=== PATIENT | female | born 1990 | race Caucasian/White ===

== ENCOUNTER 2020-12-07 21:52 | Emergency (ER) | payer OTHER ==
[~2020-12-07] VITALS: Ht 160 cm; Wt 67.1 kg
[2020-12-07 22:10] VITALS: BP 125/73
--- NOTE | 2020-12-07 22:35 | NUR ---
30 yo f bib self with c/c of 10/10 r upper back and r rib pain x1day. pt states it hurts more when she takes a deep breath, chest tightens and sob during pain. o2 sat 100% ra. pt states pain began all of a sudden. nonrad. denies taking medication for pain. pt yells and groans when pain begins. pt states she was told she had fluid in her l lung in january during , was told to follow up, pt did not. pt placed in clinical research monitor. denies fever, cough, chills. covid in january. denies hx and rx nka
[2020-12-07] MEDS ORDERED: KETOROLAC 30 MG/ML VIAL IM ONE (23:25)
[2020-12-07] MEDS ORDERED: LORazepam 1 MG TAB PO ONE (23:25)
--- NOTE | 2020-12-07 23:35 | NUR ---
rad at bedside.
[2020-12-08] MEDS ORDERED: MORPHINE SULFATE 4 MG/ML SYR IM ONE (00:20)
--- NOTE | 2020-12-08 00:23 | NUR ---
pt taken to ct.
--- NOTE | 2020-12-08 00:35 | NUR ---
pt back from ct.
--- NOTE | 2020-12-08 00:39 | NUR ---
lab at bedside.
[2020-12-08 00:55] LABS: BASOPHILS % (AUTO) 0.6 % (0.0-2.0); EOSINOPHILS # (AUTO) 0.3 K/uL (0-0.4); EOSINOPHILS % (AUTO) 3.4 % (0.0-4.0); HEMATOCRIT 35.6 % (36-48); HEMOGLOBIN 11.9 g/dL (12.0-16.0); LYMPHOCYTES # (AUTO) 1.3 K/uL (2.5-16.5); LYMPHOCYTES % (AUTO) 17.6 % (20.5-51.1); MEAN CORPUSCULAR HEMOGLOBIN 31 pg (27-31); MEAN CORPUSCULAR HGB CONC 33 g/dL (33-37); MEAN CORPUSCULAR VOLUME 93.6 fL (80-94); MONOCYTES # (AUTO) 0.5 K/uL (0.8-1.0); MONOCYTES % (AUTO) 6.7 % (1.7-9.3); NEUTROPHILS # (AUTO) 5.5 K/uL (1.8-7.7); NEUTROPHILS % (AUTO) 71.7 % (42.2-75.2); PLATELET COUNT (AUTO) 240 K/uL (140-450); RED CELL DISTRIBUTION WIDTH 14.3 % (11.6-13.7); WHITE BLOOD COUNT (AUTO) 7.6 K/uL (4.8-10.8)
[2020-12-08 01:02] LABS: ALBUMIN 3.8 g/dL (3.4-5.0); ANION GAP 12.4 (8-16); CARBON DIOXIDE 29.3 mmol/L (21-32); CREATININE 0.9 mg/dL (0.6-1.3); POTASSIUM 3.7 mmol/L (3.5-5.1); TOTAL BILIRUBIN 0.2 mg/dL (0.0-1.0)
--- NOTE | 2020-12-08 01:22 | NUR ---
pt is resting. equal rise and fall of chest wall. opens eyes to sound. all needs met at this time. side railsx2, bed locked in lowest position.
--- NOTE | 2020-12-08 01:35 | NUR ---
provided with crackers and apple juice per request.
[2020-12-08] MEDS ORDERED: NAPR-54 PO (02:14)
[2020-12-08] MEDS ORDERED: ACET-8386 PO (02:41)
[2020-12-08 02:45] VITALS: BP 112/63
--- NOTE | 2020-12-08 02:45 | NUR ---
Patient discharged with v/s stable. Written and verbal after care instructions given and explained. Patient alert, oriented and verbalized understanding of instructions. Ambulatory with steady gait. All questions addressed prior to discharge. ID band removed. Patient advised to follow up with PMD. Rx of norco and naprosyn given. Patient educated on indication of medication including possible reaction and side effects. Opportunity to ask questions provided and answered.
== END 2020-12-08 02:45 | disposition home or self-care (01) ==
LOC: MED 21:52
DX: R10.9 Unspecified abdominal pain (principal); M54.9 Dorsalgia, unspecified; R11.0 Nausea; Z79.899 Other long term (current) drug therapy
CPT/HCPCS: 36415; 71045; 74176; 80053; 85025; 96372; 99285; J1885; J2270; Q0092

== ENCOUNTER 2021-01-27 16:47 | Emergency (ER) | payer OTHER ==
[~2021-01-27] VITALS: Ht 160 cm; Wt 65.8 kg
[~2021-01-27 16:47] MED LIST: ACET-8386 PO; NAPR-54 PO
[2021-01-27 17:13] VITALS: BP 105/63
[2021-01-27] MEDS ORDERED: ACETAMINOPHEN EXTRA STRENGTH 500 MG TAB PO ONE (17:25)
--- NOTE | 2021-01-27 20:00 | NUR ---
PT ASSISTED TO BED 06 VIA W/C.
[2021-01-27] MEDS ORDERED: MORPHINE SULFATE 4 MG/ML SYR IVP ONE (20:10)
[2021-01-27] MEDS ORDERED: NACL 0.9% 1,000 ML IV ONE (20:10)
--- NOTE | 2021-01-27 20:10 | NUR ---
CHECKED PT'S TEMP, TEMP WAS 98.5
--- NOTE | 2021-01-27 20:13 | NUR ---
ERMD AT BEDSIDE.
[2021-01-27 20:29] LABS: BASOPHILS % (AUTO) 0.3 % (0.0-2.0); EOSINOPHILS % (AUTO) 0.2 % (0.0-4.0); HEMOGLOBIN 11.9 g/dL (12.0-16.0); LYMPHOCYTES # (AUTO) 0.7 K/uL (2.5-16.5); LYMPHOCYTES % (AUTO) 8.8 % (20.5-51.1); MEAN CORPUSCULAR HEMOGLOBIN 32 pg (27-31); MEAN CORPUSCULAR HGB CONC 34 g/dL (33-37); MEAN CORPUSCULAR VOLUME 93.3 fL (80-94); MONOCYTES # (AUTO) 0.4 K/uL (0.8-1.0); MONOCYTES % (AUTO) 5.8 % (1.7-9.3); NEUTROPHILS # (AUTO) 6.4 K/uL (1.8-7.7); NEUTROPHILS % (AUTO) 84.9 % (42.2-75.2); PLATELET COUNT (AUTO) 292 K/uL (140-450); RED BLOOD CELL COUNT(AUTO) 3.75 MIL/uL (4.20-5.40); RED CELL DISTRIBUTION WIDTH 14.1 % (11.6-13.7); WHITE BLOOD COUNT (AUTO) 7.6 K/uL (4.8-10.8)
[2021-01-27 20:42] LABS: PROTHROMBIN TIME 10.2 secs (10.8-13.4)
[2021-01-27 20:43] LABS: ALBUMIN 3.8 g/dL (3.4-5.0); ANION GAP 13.1 (8-16); CARBON DIOXIDE 28.6 mmol/L (21-32); CREATININE 0.9 mg/dL (0.6-1.3); POTASSIUM 3.7 mmol/L (3.5-5.1); TOTAL BILIRUBIN 0.6 mg/dL (0.0-1.0)
--- NOTE | 2021-01-27 20:57 | NUR ---
AMBULATED PT TO BTHROOM
[2021-01-27] MEDS ORDERED: KETOROLAC 30 MG/ML VIAL IVP ONE (22:40)
[2021-01-27] MEDS ORDERED: cefTRIAXone 2,000 MG in DEXTROSE 5% 100 ML IV ONE (22:40)
[2021-01-27] MEDS ORDERED: MORPHINE SULFATE 2 MG/ML SYR IVP ONE (22:40)
[2021-01-27] MEDS ORDERED: cefTRIAXone 2,000 MG VIAL ONE (22:43)
[2021-01-27] MEDS ORDERED: CEPH-588 PO (23:13)
[2021-01-27 23:15] LABS: APPEARANCE,URINE CLOUDY (CLEAR); BILIRUBIN,URINE NEGATIVE (NEGATIVE); BLOOD, URINE 1+ (NEGATIVE); COLOR,URINE YELLOW (YELLOW); LEUKOCYTE ESTERASE ,URINE 2+ (NEGATIVE); NITRITE, URINE POSITIVE (NEGATIVE); UGLUCOSE NEGATIVE (NEGATIVE)
[2021-01-27 23:22] LABS: RBC,URINE 0-5 /HPF (0-5); WBC,URINE TOO MANY TO COUNT /HPF (0-5)
[2021-01-27] MEDS ORDERED: IBUP-2213 PO (23:23)
--- NOTE | 2021-01-27 23:46 | NUR ---
COMPLETE RAT CULTURIST PERFORMED AT 2328 DOCUMENTED BY YONY KIM [facility].
--- NOTE | 2021-01-28 00:22 | NUR ---
AMBULATED TO RESTROOM.
--- NOTE | 2021-01-28 00:30 | NUR ---
PT GIVEN A SANDWHICH AND JUICE AFTER REQUEST.
[2021-01-28] MEDS ORDERED: KETO30SO21 IJ (01:25)
[2021-01-28 01:30] VITALS: BP 102/54
--- NOTE | 2021-01-28 01:30 | NUR ---
Patient discharged with v/s stable. Written and verbal after care instructions given and explained. Patient alert, oriented and verbalized understanding of instructions. Ambulatory with steady gait. All questions addressed prior to discharge. ID band removed. Patient advised to follow up with PMD. Rx of KEFLEX,IBUPROFEN, AND TORADAL given. Patient educated on indication of medication including possible reaction and side effects. Opportunity to ask questions provided and answered.
== END 2021-01-28 01:30 | disposition home or self-care (01) ==
LOC: MED 16:47
DX: N12 Tubulo-interstitial nephritis, not specified as acute or chronic (principal); R10.9 Unspecified abdominal pain; R30.0 Dysuria; R11.0 Nausea; Z79.899 Other long term (current) drug therapy
CPT/HCPCS: 36415; 76770; 80053; 81001; 81025; 83605; 85025; 85610; 85730; 87040; 87086; 93005; 96361; 96365; 96375; 99284; J0696; J1885; J2270; J7030; Q0092

== ENCOUNTER 2021-02-12 | Emergency (ER) | payer OTHER ==
[~2021-02-12] VITALS: Ht 160 cm; Wt 63.5 kg
[~2021-02-12] MED LIST changes: +CEPH-588 PO; +IBUP-2213 PO; +KETO30SO21 IJ
[2021-02-12 00:04] VITALS: BP 121/64
--- NOTE | 2021-02-12 00:10 | NUR ---
PT AMBULATED TO BED #9
--- NOTE | 2021-02-12 00:13 | NUR ---
PATIENT STATES SHE WAS AMBULATING AT HOME, TRIPPED AND FELL AND HAS INJURY AND SWELLING TO HER NOSE. MIKAYLA DENIES AND FURTHER COMPLAINTS, STATES SHE INITIALLY FELT DIZZY AND SEES STARS
--- NOTE | 2021-02-12 00:36 | NUR ---
Dr. Rincon examining patient.
[2021-02-12] MEDS ORDERED: KETOROLAC 30 MG/ML VIAL IM ONE (00:45)
[2021-02-12] MEDS ORDERED: HYDROcodone/APAP 5/325 MG 1 TAB TAB PO ONE (00:45)
[2021-02-12] MEDS ORDERED: LORazepam 1 MG TAB PO ONE (02:25)
[2021-02-12] MEDS ORDERED: IBUP-2213 PO (03:34)
[2021-02-12] MEDS ORDERED: ACET-8386 PO (03:40)
[2021-02-12 03:46] VITALS: BP 113/77
--- NOTE | 2021-02-12 03:46 | NUR ---
PATIENT CLEARED FOR DISCHARGE AT THIS TIME. ADVSED TO FOLLOW UP WITH PCP AND RETURN IF CONDITION WORSENS. NO FURTHER QUESTIONS FOLLOWING DISCHARGE TEACHIGN.
== END 2021-02-12 03:46 | disposition home or self-care (01) ==
LOC: MED
DX: S16.1XXA Strain of muscle, fascia and tendon at neck level, initial encounter (principal); S09.90XA Unspecified injury of head, initial encounter; J34.89 Other specified disorders of nose and nasal sinuses; M79.644 Pain in right finger(s); W01.0XXA Fall on same level from slipping, tripping and stumbling without subsequent striking against object, initial encounter; Y93.89 Activity, other specified; Y92.89 Other specified places as the place of occurrence of the external cause; Y99.8 Other external cause status
CPT/HCPCS: 70450; 70486; 72125; 73120; 96372; 99285; J1885; Q0092

== ENCOUNTER 2021-07-11 23:02 | Emergency (ER) | payer OTHER ==
[~2021-07-11] VITALS: Ht 160 cm; Wt 72.6 kg
[2021-07-11 23:04] VITALS: BP 110/62
--- NOTE | 2021-07-11 23:13 | NUR ---
patient ambulated to bed 2
--- NOTE | 2021-07-11 23:22 | NUR ---
30 Y/O FEMALE BIBS, C/O PAIN AND PRESSURE WHEN URINATING. PT STATES "I HAVE A LOT OF PRESSURE DOWN THERE; I HAVE A BLISTER DOWN THERE AND IT HURTS. WHEN I URINATE IT FEELS LIKE I'M PEEING NEEDLES." DENIES N/V/D; SKIN IS PINK/WARM/DRY; AAOX4 WITH EVEN AND STEADY GAIT; LUNGS CLEAR BL; HR EVEN AND REGULAR; PT DENIES ANY FEVER, CP, SOB, OR COUGH AT THIS TIME; PATIENT STATES PAIN OF 9/10 AT THIS TIME; VSS; PATIENT POSITIONED FOR COMFORT; HOB ELEVATED; BEDRAILS UP X2; BED DOWN. ER MD MADE AWARE OF PT STATUS. DENIES HX OR RX NKA
--- NOTE | 2021-07-11 23:45 | NUR ---
ER MD AT BEDSIDE EXAMINING PT
[2021-07-12] MEDS ORDERED: DOXYCYCLINE 100 MG CAP PO STA
[2021-07-12] MEDS ORDERED: cefTRIAXone 1,000 MG VIAL IM ONE
--- NOTE | 2021-07-12 00:21 | NUR ---
RECORDS TECH AT BEDSIDE
[2021-07-12] MEDS ORDERED: cefTRIAXone 1,000 MG in LIDOCAINE MPF 1% 2.1 ML IM ONE (00:40)
[2021-07-12] MEDS ORDERED: LIDOCAINE MPF 1% 5 ML ONE (00:42)
--- NOTE | 2021-07-12 00:49 | NUR ---
ER MD AND FEMALE CLINICAL NURSING INTERN PERFORMING PELVIC EXAM
[2021-07-12] MEDS ORDERED: HYDR-5080 PO (00:55)
[2021-07-12] MEDS ORDERED: CEPH500C16 PO ×2 (00:55→06:40)
[2021-07-12] MEDS ORDERED: DOXY-487 PO (00:55)
[2021-07-12] MEDS ORDERED: ACYC400T14 PO (00:55)
[2021-07-12] MEDS ORDERED: HYDROcodone/APAP 10/325 MG 1 TAB TAB PO ONE (01:00)
[2021-07-12] MEDS ORDERED: KETOROLAC 60 MG/2 ML VIAL IM ONE (01:00)
--- NOTE | 2021-07-12 01:02 | NUR ---
Female Tin Flipper for patient and accompanied female patient for Pelvic Exam.
--- NOTE | 2021-07-12 01:33 | NUR ---
Note mushtaqdeep in EDM - 07/13/21 at 0058 by [email or web address] Patient discharged with v/s stable. Written and verbal after care instructions given and explained. Patient alert, oriented and verbalized understanding of instructions. Ambulatory with steady gait. All questions addressed prior to discharge. ID band removed. Patient advised to follow up with PMD. Rx of ZOVIRAX, KEFLEX, NORCO (7.5-325), AND DOXYCYCLINE HYCLATE given. Patient educated on indication of medication including possible reaction and side effects. Opportunity to ask questions provided and answered. A/OX4, VSS, AMBULATORY, AND UNLABORED BREATHING.
[2021-07-12] MEDS ORDERED: PHEN-1877 PO (01:45)
[2021-07-12] MEDS ORDERED: IBUP-2218 PO (01:45)
[2021-07-12 02:02] LABS: BASOPHILS % (AUTO) 0.2 % (0.0-2.0); EOSINOPHILS % (AUTO) 0.5 % (0.0-4.0); HEMATOCRIT 32.9 % (36-48); HEMOGLOBIN 10.8 g/dL (12.0-16.0); LYMPHOCYTES # (AUTO) 0.7 K/uL (2.5-16.5); LYMPHOCYTES % (AUTO) 10.3 % (20.5-51.1); MEAN CORPUSCULAR HEMOGLOBIN 29 pg (27-31); MEAN CORPUSCULAR HGB CONC 33 g/dL (33-37); MONOCYTES # (AUTO) 0.5 K/uL (0.8-1.0); MONOCYTES % (AUTO) 8.4 % (1.7-9.3); NEUTROPHILS # (AUTO) 5.2 K/uL (1.8-7.7); NEUTROPHILS % (AUTO) 80.6 % (42.2-75.2); PLATELET COUNT (AUTO) 275 K/uL (140-450); RED BLOOD CELL COUNT(AUTO) 3.78 MIL/uL (4.20-5.40); RED CELL DISTRIBUTION WIDTH 16.8 % (11.6-13.7); WHITE BLOOD COUNT (AUTO) 6.4 K/uL (4.8-10.8)
[2021-07-12 02:15] LABS: ALBUMIN 3.3 g/dL (3.4-5.0); ANION GAP 12.2 (8-16); CARBON DIOXIDE 26.3 mmol/L (21-32); CREATININE 0.6 mg/dL (0.6-1.3); POTASSIUM 3.5 mmol/L (3.5-5.1); TOTAL BILIRUBIN 0.3 mg/dL (0.0-1.0)
[2021-07-12 04:07] LABS: BILIRUBIN,URINE NEGATIVE (NEGATIVE); BLOOD, URINE 2+ (NEGATIVE); COLOR,URINE YELLOW (YELLOW); LEUKOCYTE ESTERASE ,URINE 1+ (NEGATIVE); NITRITE, URINE NEGATIVE (NEGATIVE); UGLUCOSE NEGATIVE (NEGATIVE)
[2021-07-12 04:13] LABS: APPEARANCE,URINE HAZY (CLEAR)
[2021-07-12 04:22] LABS: WBC,URINE TOO MANY TO COUNT /HPF (0-5); YEAST,URINE Few /HPF (None Seen)
[2021-07-12] MEDS ORDERED: HYDROcodone/APAP 5/325 MG 1 TAB TAB PO ONE (06:55)
[2021-07-12 07:27] VITALS: BP 110/62
--- NOTE | 2021-07-12 07:27 | NUR ---
Patient discharged with v/s stable. Written and verbal after care instructions given and explained. Patient alert, oriented and verbalized understanding of instructions. Ambulatory with steady gait. All questions addressed prior to discharge. ID band removed. Patient advised to follow up with PMD. Rx of ZOVIRAX, KEFLEX, NORCO (7.5-325), AND DOXYCYCLINE HYCLATE given. Patient educated on indication of medication including possible reaction and side effects. Opportunity to ask questions provided and answered. A/OX4, VSS, AMBULATORY, AND UNLABORED BREATHING.
== END 2021-07-12 07:27 | disposition home or self-care (01) ==
LOC: MED 23:02
DX: O9A.211 Injury, poisoning and certain other consequences of external causes complicating pregnancy, first trimester (principal); T14.8XXA Other injury of unspecified body region, initial encounter; O23.41 Unspecified infection of urinary tract in pregnancy, first trimester; Z3A.11 11 weeks gestation of pregnancy; Z79.2 Long term (current) use of antibiotics; Z79.891 Long term (current) use of opiate analgesic; Z79.1 Long term (current) use of non-steroidal anti-inflammatories (NSAID)
CPT/HCPCS: 36415; 76801; 80053; 81001; 81025; 84702; 85025; 86592; 86694; 86703; 87086; 87210; 87252; 87529; 96372; 99285; J0696; J1885; J2001; Q0092

== ENCOUNTER 2023-09-16 23:15 | Emergency (ER) | payer OTHER ==
[~2023-09-16 23:15] MED LIST changes: -ACET-8386 PO; +ACET-8905 PO; +CEPH500C16 PO; +NAPR-337 PO; -NAPR-54 PO
[2023-09-17] MEDS ORDERED: BACTO TP (03:00)
[2023-09-17] MEDS ORDERED: CEPH-588 PO (03:00)
== END 2023-09-16 23:35 | disposition left against medical advice (07) ==
LOC: MED 23:15
DX: R21 Rash and other nonspecific skin eruption (principal); Z53.21 Procedure and treatment not carried out due to patient leaving prior to being seen by health care provider

== ENCOUNTER 2023-09-17 00:25 | Emergency (ER) | payer OTHER ==
[~2023-09-17] VITALS: Ht 160 cm; Wt 64.9 kg
[2023-09-17 00:30] VITALS: BP 113/71; PULSE 86; RESP 16; TEMP 98; O2SAT 97
[2023-09-17] MEDS: KETOROLAC 30 MG/ML VIAL IVP ONE (01:26)
[2023-09-17] MEDS: ONDANSETRON 4 MG/2 ML VIAL IVP ONE (01:27)
[2023-09-17 01:30] LABS: APPEARANCE,URINE CLEAR (CLEAR); BILIRUBIN,URINE NEGATIVE (NEGATIVE); BLOOD, URINE TRACE-I (NEGATIVE); COLOR,URINE YELLOW (YELLOW); LEUKOCYTE ESTERASE ,URINE 1+ (NEGATIVE); NITRITE, URINE NEGATIVE (NEGATIVE); PH,URINE 6.5 (5.0-9.0); PROTEIN,URINE NEGATIVE (NEGATIVE); UGLUCOSE NEGATIVE (NEGATIVE)
[2023-09-17 01:37] LABS: BACTERIA,URINE >30 (MANY) /HPF (None Seen); RBC,URINE 0-5 /HPF (0-5); SQUAMOUS EPITHELIAL CELL,UR 0-3 (FEW) /LPF (0-3 (FEW)); WBC,URINE >25 (MANY) /HPF (0-5)
[2023-09-17 01:38] LABS: MUCUS,URINE 1+ /LPF (None Seen)
[2023-09-17 01:40] LABS: AMPHETAMINE, URINE POSITIVE ng/ml (NEG <=1000); BARBITURATE, URINE NEGATIVE ng/ml (NEG <=200); BENZODIAZEPINE, URINE NEGATIVE ng/mL (NEG <=200); COCAINE, URINE POSITIVE ng/mL (NEG <=300)
[2023-09-17 01:41] LABS: CANNABINOID, URINE NEGATIVE ng/mL (NEG <=50); PHENCYCLIDINE SCREEN,URINE NEGATIVE ng/mL (NEG <=25)
[2023-09-17 01:42] LABS: OPIATE, URINE NEGATIVE ng/mL (NEG <=2000)
[2023-09-17 01:43] LABS: BASOPHILS % (AUTO) 0.6 % (0.0-2.0); EOSINOPHILS # (AUTO) 0.1 K/uL (0-0.4); EOSINOPHILS % (AUTO) 1.4 % (0.0-4.0); HEMATOCRIT 35.4 % (36-48); HEMOGLOBIN 12.3 g/dL (12.0-16.0); LYMPHOCYTES # (AUTO) 1.4 K/uL (2.5-16.5); LYMPHOCYTES % (AUTO) 28.6 % (20.5-51.1); MEAN CORPUSCULAR HEMOGLOBIN 32 pg (27-31); MEAN CORPUSCULAR HGB CONC 35 g/dL (33-37); MEAN CORPUSCULAR VOLUME 92.7 fL (80-94); MONOCYTES # (AUTO) 0.4 K/uL (0.8-1.0); MONOCYTES % (AUTO) 8.9 % (1.7-9.3); NEUTROPHILS % (AUTO) 60.5 % (42.2-75.2); PLATELET COUNT (AUTO) 231 K/uL (140-450); RED BLOOD CELL COUNT(AUTO) 3.81 MIL/uL (4.20-5.40); RED CELL DISTRIBUTION WIDTH 13.2 % (11.6-13.7); WHITE BLOOD COUNT (AUTO) 4.9 K/uL (4.8-10.8)
[2023-09-17 02:13] LABS: ALBUMIN 3.9 g/dL (3.4-5.0); BILIRUBIN,DIRECT 0.1 mg/dL (0.0-0.3); CALCIUM 8.7 mg/dL (8.5-10.1); CARBON DIOXIDE 29.9 mmol/L (21-32); CREATININE 0.8 mg/dL (0.6-1.3); POTASSIUM 3.9 mmol/L (3.5-5.1); TOTAL BILIRUBIN 0.2 mg/dL (0.0-1.0); TOTAL PROTEIN, SERUM 7.8 g/dL (6.4-8.2)
[2023-09-17] MEDS ORDERED: cefTRIAXone 1,000 MG VIAL ONE (02:27)
[2023-09-17] MEDS: NACL 0.9% 1,000 ML IV SCH (02:32)
[2023-09-17] MEDS: BACITRACIN OINT 500 UNITS/GM PKT TP ONE (02:51)
[2023-09-17] MEDS ORDERED: CEPH-588 PO (03:00)
[2023-09-17] MEDS ORDERED: BACTO TP (03:00)
[2023-09-17 03:16] VITALS: BP 113/71; PULSE 86; RESP 16; TEMP 98; O2SAT 97
== END 2023-09-17 03:16 | disposition home or self-care (01) ==
LOC: MED 00:25
DX: N39.0 Urinary tract infection, site not specified (principal); L98.499 Non-pressure chronic ulcer of skin of other sites with unspecified severity; Z79.1 Long term (current) use of non-steroidal anti-inflammatories (NSAID); Z79.2 Long term (current) use of antibiotics; Z79.899 Other long term (current) drug therapy
CPT/HCPCS: 36415; 80048; 80076; 80305; 81001; 81025; 83690; 85025; 87086; 87186; 96365; 96375; 99284; J0696; J1885; J2405; J7030